=== PATIENT | female | born 1985 | race Caucasian/White ===

== ENCOUNTER 2021-09-04 22:37 | Emergency (ER) | payer MEDICAID ==
[~2021-09-04] VITALS: Ht 160 cm; Wt 72.4 kg
[2021-09-05 00:28] LABS: BASOPHILS % 0.5 % (0.0-2.0); HEMATOCRIT. 43.4 % (36.0-48.0); HEMOGLOBIN. 14.8 g/dL (12.0-16.0); LYMPHOCYTES % 8.6 % (20.0-50.0); MEAN CORPUSCULAR VOLUME 88.2 fL (81.0-99.0); MEAN PLATELET VOLUME 10.1 fl (7.4-10.4); MONOCYTES % 4.5 % (2.0-8.0); NEUTROPHILS % 86.4 % (40.0-76.0); PLATELET 231 x1000/uL (130-400); RED BLOOD CELL COUNT 4.93 mill/uL (4.2-5.4); RED CELL DISTRIBUTION WIDTH 13.3 % (11.6-14.6)
[2021-09-05 00:36] LABS: CHLORIDE 98 mEq/L (98-107)
[2021-09-05 01:24] LABS: ETHANOL BLOOD < 10 mg/dL
[2021-09-05] MEDS ORDERED: ACETAMINOPHEN 325MG TABLET PO ONE (01:30)
[2021-09-05 01:33] LABS: BETA HYDROXYBUTYRATE 1.4 mMol/L (0.0-0.3)
[2021-09-05 01:47] LABS: HCG SCREEN NEGATIVE
[2021-09-05 01:47] LABS: CLARITY URINE CLEAR (CLEAR); COLOR URINE YELLOW (YELLOW); KETONES URINE 4+ (NEGATIVE); LEUKOCYTE ESTERASE URINE NEGATIVE (NEGATIVE); NITRITE URINE NEGATIVE (NEGATIVE); OCCULT BLOOD URINE 1+ (NEGATIVE); PROTEIN URINE TRACE (NEGATIVE); UROBILINOGEN URINE 0.2 E.U./dL (0.2-1.0)
[2021-09-05 02:01] LABS: *AMPHETAMINES SCREEN URINE NEGATIVE (NEGATIVE); *BARBITURATES SCREEN URINE NEGATIVE (NEGATIVE); *BENZODIAZEPINES SCREEN URINE NEGATIVE (NEGATIVE); *COCAINE SCREEN URINE NEGATIVE (NEGATIVE); CANNABINOID URINE SCREEN NEGATIVE (NEGATIVE); METHADONE URINE SCREEN NEGATIVE (NEGATIVE); OPIATES URINE SCREEN NEGATIVE (NEGATIVE); PHENCYCLIDINE URINE SCREEN NEGATIVE (NEGATIVE)
[2021-09-05] MEDS ORDERED: SODIUM CHLORIDE 0.9% 1,000 ML IV ONE ×2 (02:15)
[2021-09-05] MEDS ORDERED: TOPUD PO (05:08)
[2021-09-05] MEDS ORDERED: INSLIS SUBCUT (05:08)
[2021-09-05] MEDS ORDERED: NPH,100V SQ (05:08)
[2021-09-05] MEDS ORDERED: NEED-401 SQ (05:10)
[2021-09-05 05:23] VITALS: BP 95/58
[2021-09-05] MEDS ORDERED: FLUC200T51 MT (21:47)
== END 2021-09-05 05:26 | disposition home or self-care (01) ==
LOC: ER 22:37
DX: R50.9 Fever, unspecified (principal); B37.49 Other urogenital candidiasis; E11.65 Type 2 diabetes mellitus with hyperglycemia; Z98.890 Other specified postprocedural states; Z79.899 Other long term (current) drug therapy; Z20.822 Contact with and (suspected) exposure to COVID-19
CPT/HCPCS: 36415; 71045; 80053; 80305; 80320; 81003; 81025; 82010; 82962; 83605; 83690; 84703; 85025; 87426; 87804; 99284; C9803; J7030; G0480

== ENCOUNTER 2023-03-18 23:58 | Emergency (ER) | payer MEDICAID, OTHER ==
[~2023-03-18] VITALS: Ht 157.5 cm; Wt 82.0 kg
[~2023-03-18 23:58] MED LIST: FLUC200T51 MT; INSLIS SUBCUT; NEED-401 SQ; NPH,100V SQ; TOPUD PO
[2023-03-19 00:22] VITALS: BP 122/89; PULSE 85; RESP 17; TEMP 98.5; O2SAT 99
[2023-03-19] MEDS ORDERED: FAMOTIDINE 20MG TABLET PO ONE (01:30)
[2023-03-19] MEDS ORDERED: DIPHENHYDRAMINE 25MG CAPSULE PO ONE (01:30)
[2023-03-19] MEDS ORDERED: DEXAMETHASONE 10 MG/ML VIAL PO ONE (01:30)
== END 2023-03-19 03:07 | disposition home or self-care (01) ==
LOC: ER 23:58
DX: J03.90 Acute tonsillitis, unspecified (principal); E11.9 Type 2 diabetes mellitus without complications; Z98.890 Other specified postprocedural states
CPT/HCPCS: 99284; Q0163; J1100

== ENCOUNTER 2023-06-28 01:03 | Emergency (ER) | payer MEDICAID ==
[~2023-06-28] VITALS: Ht 157.5 cm; Wt 72.9 kg
[2023-06-28 01:08] VITALS: O2SAT 98
[2023-06-28 01:20] LABS: CLARITY URINE CLEAR (CLEAR); COLOR URINE YELLOW (YELLOW); GLUCOSE URINE 3+ (NEGATIVE); KETONES URINE 1+ (NEGATIVE); LEUKOCYTE ESTERASE URINE NEGATIVE (NEGATIVE); NITRITE URINE NEGATIVE (NEGATIVE); OCCULT BLOOD URINE NEGATIVE (NEGATIVE); PH URINE 6.5 (4.5-8.0); PROTEIN URINE NEGATIVE (NEGATIVE); SPECIFIC GRAVITY URINE 1.013 (1.005-1.030); UROBILINOGEN URINE 0.2 E.U./dL (0.2-1.0)
[2023-06-28 01:34] LABS: EOSINOPHILS % 1.4 % (0.0-5.0); HEMATOCRIT. 41.2 % (36.0-48.0); HEMOGLOBIN. 14.2 g/dL (12.0-16.0); LYMPHOCYTES % 36.7 % (20.0-50.0); MEAN CORPUSCULAR HEMOGLOBIN 30.3 pg (28.0-32.0); MEAN CORPUSCULAR HGB CONC 34.4 g/dL (31.0-37.0); MEAN PLATELET VOLUME 9.7 fl (7.4-10.4); MONOCYTES % 6.5 % (2.0-8.0); NEUTROPHILS % 54.4 % (40.0-76.0); PLATELET 282 x1000/uL (130-400); RED BLOOD CELL COUNT 4.69 mill/uL (4.2-5.4); RED CELL DISTRIBUTION WIDTH 12.8 % (11.6-14.6)
[2023-06-28 01:48] LABS: HCG SCREEN NEGATIVE
[2023-06-28 01:58] LABS: ALANINE AMINOTRANSFERASE 11 IU/L (10-49); ALBUMIN 4.8 g/dL (3.2-4.8); ASPARTATE AMINOTRANSFERASE 14 IU/L (<34); CALCIUM 9.5 mg/dL (8.7-10.4); CARBON DIOXIDE 24 mEq/L (21-32); CHLORIDE 102 mEq/L (98-107); CREATININE 0.8 mg/dL (0.6-1.0); GLUCOSE 234 mg/dL (70-105); POTASSIUM 3.3 mEq/L (3.5-5.1); PROTEIN TOTAL 8.7 g/dL (6.0-8.3); SODIUM 135 mEq/L (136-145); TROPONIN I HIGH SENSITIVITY 11 ng/L (3.0-34); UREA NITROGEN BLOOD 14 mg/dL (9-23)
[2023-06-28 05:59] LABS: WBC URINE 0-2 /hpf (0-2)
[2023-06-28 06:00] LABS: RBC URINE 0-2 /hpf (0-2)
[2023-06-28 06:01] LABS: BACTERIA URINE NONE SEEN; SQUAMOUS EPITHELIAL CELL URINE FEW /lpf (RARE/1+)
[2023-06-28] MEDS ORDERED: AMOX1TAB16 MT (09:24)
[2023-06-28] MEDS: KETOROLAC 30MG/ML VIAL IM ONE (09:45)
[2023-06-28 09:46] VITALS: BP 103/77; PULSE 68; RESP 18; TEMP 98.2
== END 2023-06-28 09:47 | disposition home or self-care (01) ==
LOC: ER 01:14
DX: R07.89 Other chest pain (principal); K02.9 Dental caries, unspecified; E11.9 Type 2 diabetes mellitus without complications; Z98.890 Other specified postprocedural states
CPT/HCPCS: 99285; 71045; 80053; 81003; 84703; 85025; 85379; 84484; 36415; 93005; 96372; J1885